=== PATIENT | male | born 1955 | race Caucasian/White ===

== ENCOUNTER 2016-08-18 16:01 | Emergency (ER) | payer BC ==
[~2016-08-18] VITALS: Ht 177.8 cm; Wt 80.7 kg
[2016-08-18] MEDS ORDERED: HYDROMORPHONE 1 MG/1 ML DISP.SYRIN IV ONE ×2 (16:30→20:45)
[2016-08-18] MEDS ORDERED: ONDANSETRON 4 MG/2 ML VIAL IV ONE (16:30)
[2016-08-18] MEDS ORDERED: HYDROMORPHONE 1 MG/1 ML DISP.SYRIN ONE ×2 (16:40→21:10)
[2016-08-18] MEDS ORDERED: ONDANSETRON 4 MG/2 ML VIAL ONE (16:41)
--- NOTE | 2016-08-18 18:16 | NUR ---
called to [facility] charlette albarran at [phone], talked to whitney, gave the requested info, he will call back.
--- NOTE | 2016-08-18 18:24 | NUR ---
requested info faxed to [facility] at [phone]. admitting md is dr. loyola.
--- NOTE | 2016-08-18 19:00 | NUR ---
dr. loyola called back and told dr. nieves to transfer the pt to [facility]. called [facility] to give report, unsuccessful. called transfer center and talked to whitney about dr. loyola request.
[2016-08-18] MEDS ORDERED: ONDANSETRON ODT 4 MG TAB.RAPDIS SL ONE (20:45)
[2016-08-18] MEDS ORDERED: ONDANSETRON ODT 4 MG TAB.RAPDIS ONE (21:09)
--- NOTE | 2016-08-18 21:44 | NUR ---
Patient Tranfers to outside Facility Physician: Donovan Ayers Location: [facility] yulia perez, [address] [facility], room [address], report given to Shalonda pt taken via gurney, at side, pt is alert, oriented x 4, no resp distress noted or reported upon transfer assessment...
== END 2016-08-18 22:44 | disposition short-term general hospital (02) ==
LOC: ER 16:03
DX: S72.401A Unspecified fracture of lower end of right femur, initial encounter for closed fracture (principal); Z96.641 Presence of right artificial hip joint; W01.0XXA Fall on same level from slipping, tripping and stumbling without subsequent striking against object, initial encounter; Y93.89 Activity, other specified; Y99.8 Other external cause status; Y92.89 Other specified places as the place of occurrence of the external cause
CPT/HCPCS: 73502; 73551; 73560; 73590; A4663; J1170; J2405; Q0162